=== PATIENT | male | born 1935 | race African-American/Black ===

== ENCOUNTER → 2016-07-24 | Outpatient (CLI) | payer OTHER ==
[2016-02-03 10:45] VITALS: BP 138/76
[~2016-07-24] MED LIST: ATOR40TA59 PO; CONTRAST GIVEN MC PRN; FINA5TAB4 PO; HEPARIN for ARTERIAL LINE 0 ML ONE; IOHEXOL 240 MG/ML 50ML VIAL. PO ONE; IOHEXOL 300 MG/ML 75 ML VIAL IV ONE; LEUP30SY IM; LIDOCAINE 1%/EPI 1:100,000 20 ML VIAL. ONE; TAMS0.4C2 PO; TRAM50TA PO
[2016-07-24 08:18] LABS: CREATININE 1.4 mg/dL (0.7-1.3); GFR 58.7
--- NOTE | 2016-07-24 10:35 | RAD ---
Indication prostate malignancy. Staging. Axial images through the abdomen and pelvis were obtained. Both oral and IV contrast were administered. 60 cc of Omnipaque [address] imaging of the abdomen or pelvis is available. There is pleural calcification posteriorly at the left lung base. This may reflect previous asbestos exposure, hemorrhage or prior infection. There is a pleural-based nodule measuring approximately 8 mm at the right lung base posteriorly, image 11 series 2. This may reflect scar. A parenchymal mass is not excluded. (Scarring, however, is favored as the etiology as there are healed rib fractures noted in the same area) Follow-up imaging should be considered. An acute finding at either lung base is not seen. The liver and spleen appear unremarkable and the gallbladder appears grossly normal. No pancreatic mass is seen. There are bilateral renal cysts. No adrenal masses are seen. Significant central or retroperitoneal adenopathy in the abdomen is not seen. The prostate is enlarged. There is mild diffuse urinary bladder wall thickening compatible with chronic cystitis or chronic outlet obstructive process. An acute finding in the pelvis is not seen. Significant pelvic adenopathy is not apparent. There is no evidence of metastatic disease in the abdomen or pelvis. Degenerative changes are noted in the lumbar spine. IMPRESSION: No acute finding in the abdomen or pelvis. No evidence of metastatic disease. Pleural calcification at the left lung base suggesting possible prior asbestos exposure. Nodular opacity at the right lung base posteriorly likely reflects scar. Parenchymal nodule not completely excluded. Follow-up imaging should be considered. Renal cysts. Enlarged prostate. Diffuse thickening of the urinary bladder suggesting chronic outlet obstructive process or inflammation. PQRS Compliance Statement: One or more of the following individualized dose reduction techniques were utilized for this examination: 1. Automated exposure control 2. Adjustment of the mA and/or kV according to patient size 3. Use of iterative reconstruction technique
--- NOTE | 2016-07-24 13:10 | RAD ---
Whole body bone scan Clinical indications: Prostate cancer. Staging. Comparison: None available. Technique: After IV infusion of 25 mCi of technetium 99m MDP, anterior and posterior planar images of the whole body were performed. Findings: Bilateral renal function is evident. There is degenerative activity seen involving both knee joints. There is degenerative activity seen involving the lower thoracic spine and the lower lumbar spine. There is degenerative activity involving the right sternoclavicular joint. There is degenerative activity involving both hip joints. Otherwise, there is no pattern of uptake to indicate osseous metastatic disease. IMPRESSION: There is no pattern of uptake to indicate osseous metastatic disease.
== END | disposition home or self-care (01) ==
LOC: NM 06:38
PROVIDERS: ATTEND Radiology Radiation Oncology
DX: C61 Malignant neoplasm of prostate (principal)
CPT/HCPCS: 36415; 74177; 78306; 82565; 84520; 96374; A9503; Q9966; Q9967

== ENCOUNTER → 2016-08-03 | Outpatient (CLI) | payer OTHER ==
[~2016-08-03] VITALS: Ht 170.2 cm; Wt 68.9 kg
[~2016-08-03] MED LIST changes: +ASPI325T70 PO; -CONTRAST GIVEN MC PRN; -HEPARIN for ARTERIAL LINE 0 ML ONE; -IOHEXOL 240 MG/ML 50ML VIAL. PO ONE; -IOHEXOL 300 MG/ML 75 ML VIAL IV ONE; -LIDOCAINE 1%/EPI 1:100,000 20 ML VIAL. ONE
[2016-08-03 10:22] VITALS: BP 145/68
[2016-08-03 10:53] VITALS: BP_SYST 136; BP_SYST 153; BP_DIAS 72; BP_DIAS 89
[2016-08-03 10:54] VITALS: BP 155/80
--- NOTE | 2016-08-03 12:29 | RAD ---
Ultrasound-guided prostate fiducial marker placements, 08/03/2016: History: Prostate cancer Under sonographic guidance and utilizing a transrectal approach, 3 Civco prostate fiducial markers were placed. The first marker was placed superiorly in the left lobe of the gland. The second marker was placed inferiorly in the left lobe of the gland. The third marker was placed in the midportion of the right lobe of the gland. The patient tolerated the procedure well and left the department in good condition. He is to follow up with Dr. Faulkner.
== END | disposition home or self-care (01) ==
LOC: US 09:36
PROVIDERS: ATTEND Radiology Radiation Oncology
DX: C61 Malignant neoplasm of prostate (principal)
CPT/HCPCS: 55876; 77387

== ENCOUNTER 2016-08-28 17:21 | Emergency (ER) | payer OTHER ==
[~2016-08-28] VITALS: Ht 170.2 cm; Wt 71.2 kg
--- NOTE | 2016-08-28 17:56 | ED.ADGEN ---
Past Medical History Past Medical History: Other Additional Past Medical Histor: BPH Past Surgical History: No Surgical History Alcohol Use: None Drug Use: None Adult General Chief Complaint Chief Complaint: NEURO SYMPTOMS/DEFICITS HPI HPI Patient is a 81 year old man, with history of prostate cancer for which he is currently receiving radiation, who presents to the emergency department with multiple complaints. Patient states that he was mowing his lawn about 2 hours ago, when he began feeling tired, experienced chest tightness, and weakness in his arms and legs. He states he noted that he was unable to make a straight line with his lawnmower in the grass. He denies any syncope, complains of mild shortness of breath, states that he felt as though "my spit got sick", and he was unable to find words. He did not pass out, states he did not have any focal weakness, is complaining of some decreased sensation in the left side of his body and left-sided his face. Denies any similar symptoms previously. At this time he states he still having some difficulty finding words, but otherwise symptoms are resolved. Denies any recent travel or surgery, any history of DVT or PE. Review of Systems Review of Systems Constitutional: Denies fever or chills. [] Eyes: Denies change in visual acuity. [] HENT: Denies nasal congestion or sore throat. [] Respiratory: Denies cough, shortness of breath associated with chest tightness and lightheadedness. Cardiovascular: Chest tightness located in the center of his chest. No edema. GI: Denies abdominal pain, nausea, vomiting, bloody stools or diarrhea. [] : Denies dysuria. [] Musculoskeletal: Denies back pain or joint pain. [] Integument: Denies rash. [] Neurologic: Denies headache, focal weakness, felt as though he was off balance , with decreased sensation in the left side of his face and arm and leg. Endocrine: Denies polyuria or polydipsia. [] Lymphatic: Denies swollen glands. [] Psychiatric: Denies depression or anxiety. [] Current Medications Current Medications Current Medications Medications (Trade) Dose Ordered Sig/Zoë Start Time Stop Time Status Last Admin Dose Admin Oseltamivir Phosphate (Tamiflu) 75 mg 1X ONCE 08/28/16 21:00 08/28/16 21:01 DC Allergies Allergies Allergies Coded Allergies Type Severity Reaction Last Updated Verified procaine Allergy Intermediate 2/13/17 Yes Physical Exam Physical Exam Constitutional: Well developed, well nourished, no acute distress, non-toxic appearance. [] HENT: Normocephalic, atraumatic, bilateral external ears normal, oropharynx moist, no oral exudates, nose normal. [] Eyes: PERRLA, EOMI, conjunctiva normal, no discharge. [] Neck: Normal range of motion, no tenderness, supple, no stridor. [] Cardiovascular:Heart rate regular rhythm, no murmur [] Lungs & Thorax: Bilateral breath sounds clear to auscultation [] Abdomen: Bowel sounds normal, soft, no tenderness, no masses, no pulsatile masses. [] Skin: Warm, dry, no erythema, no rash. [] Back: No tenderness, no CVA tenderness. [] Extremities: No tenderness, no cyanosis, no clubbing, ROM intact, no edema. [] Neurologic: Alert and oriented X 3, normal motor function, normal sensory function, no focal deficits noted. [] Psychologic: Affect normal, judgement normal, mood normal. [] Current Patient Data Vital Signs Vital Signs Date Time Temp Pulse Resp B/P Pulse Ox O2 Delivery O2 Flow Rate FiO2 08/28/16 20:40 149/86 Room Air 08/28/16 20:14 76 08/28/16 19:44 21 08/28/16 18:44 94 08/28/16 17:27 97.3 97.3 Lab Values Laboratory Tests Test 08/28/16 14:02 08/28/16 18:35 08/28/16 19:17 White Blood Count 4.6x10^3/uL (4.0-11.0) Red Blood Count 4.27x10^6/uL (4.30-5.70) L Hemoglobin 12.8g/dL (13.0-17.5) L Hematocrit 39.3% (39.0-53.0) Mean Corpuscular Volume 92fL (79-100) Mean Corpuscular Hemoglobin 30pg (25-35) Mean Corpuscular Hemoglobin Concent 33g/dL (31-37) Red Cell Distribution Width 13.7% (11.5-14.5) Platelet Count 170x10^3/uL (140-400) Neutrophils (%) (Auto) 86% (31-73) H Lymphocytes (%) (Auto) 9% (24-48) L Monocytes (%) (Auto) 5% (0-9) Eosinophils (%) (Auto) 1% (0-3) Basophils (%) (Auto) 0% (0-3) Neutrophils # (Auto) 3.9x10^3uL (1.8-7.7) Lymphocytes # (Auto) 0.4x10^3/uL (1.0-4.8) L Monocytes # (Auto) 0.2x10^3/uL (0.0-1.1) Eosinophils # (Auto) 0.0x10^3/uL (0.0-0.7) Basophils # (Auto) 0.0x10^3/uL (0.0-0.2) Segmented Neutrophils % 66% (35-66) Band Neutrophils % 17% (0-9) H Lymphocytes % 11% (24-48) L Monocytes % 6% (0-10) Toxic Granulation Slight Platelet Estimate Adequate (ADEQUATE) Prothrombin Time 16.2SEC (11.7-14.0) H Prothrombin Time INR 1.4 (0.8-1.1) H PTT 28SEC (24-38) Sodium Level 143mmol/L (136-145) Potassium Level 4.1mmol/L (3.5-5.1) Chloride Level 104mmol/L (98-107) Carbon Dioxide Level 30mmol/L (21-32) Anion Gap 9 (6-14) Blood Urea Nitrogen 17mg/dL (8-26) Creatinine 1.5mg/dL (0.7-1.3) H Estimated GFR (Cockcroft-Gault) 54.2 BUN/Creatinine Ratio 11 (6-20) Glucose Level 126mg/dL (70-99) H Calcium Level 10.1mg/dL (8.5-10.1) Total Bilirubin 0.5mg/dL (0.2-1.0) Aspartate Amino Transferase (AST) 25U/L (15-37) Alanine Aminotransferase (ALT) 29U/L (16-63) Alkaline Phosphatase 71U/L (46-116) Troponin I Quantitative < 0.017ng/mL (0.000-0.055) UR-Vzn-D-Type Natriuretic Peptide 52pg/mL (0-449) Total Protein 8.1g/dL (6.4-8.2) Albumin 3.9g/dL (3.4-5.0) Albumin/Globulin Ratio 0.9 (1.0-1.7) L Urine Collection Type Unknown Urine Color Dk yellow Urine Clarity Clear Urine pH 7.5 Urine Specific [place] 1.025 Urine Protein Negativemg/dL (NEG-TRACE) Urine Glucose (UA) Negativemg/dL (NEG) Urine Ketones (Stick) Negativemg/dL (NEG) Urine Blood Negative (NEG) Urine Nitrite Negative (NEG) Urine Bilirubin Small (NEG) Urine Urobilinogen Dipstick 0.2mg/dL (0.2 mg/dL) Urine Leukocyte Esterase Negative (NEG) Urine RBC 0/HPF (0-2) Urine WBC 0/HPF (0-4) Urine Squamous Epithelial Cells Occ/LPF Urine Bacteria 0/HPF (0-FEW) Urine Hyaline Casts Moderate/HPF Urine Mucus Mod/LPF Urine Opiates Screen Neg (NEG) Urine Methadone Screen Neg (NEG) Urine Barbiturates Neg (NEG) Urine Phencyclidine Screen Neg (NEG) Urine Amphetamine/Methamphetamine Neg (NEG) Urine Benzodiazepines Screen Neg (NEG) Urine Cocaine Screen Neg (NEG) Urine Cannabinoids Screen Neg (NEG) Urine Ethyl Alcohol Neg (NEG) Influenza Type A Antigen Positive (NEGATIVE) Influenza Type B Antigen Negative (NEGATIVE) Laboratory Tests 08/28/16 14:02 Laboratory Tests 08/28/16 14:02 EKG EKG EC: Sinus rhythm, heart rate 87 beats/minute, upright axis, QTC of 412, TX 152, QRS of 60, patient with contour abnormalities noted in the anterior septal leads, with moderate baseline artifact noted, no ST elevations or depressions identified. Patient with T-wave flattening in leads 3 and aVF. Abnormal ECG, does not meet STEMI criteria. As interpreted by me. [] Radiology/Procedures Radiology/Procedures Chest x-ray: One view: Normal cardiopulmonary silhouette, no traits, no effusions, no pneumothorax, soft tissue or bony abnormalities identified. As interpreted by me. [] Course & Med Decision Making Course & Med Decision Making Pertinent Labs and Imaging studies reviewed. (See chart for details) Patient denies complaints at this time, is resting comfortably. Lab returned studies reveal a doses, patient is noted to have a left shift with bands, although he is afebrile, with no evidence of infiltrate noted on chest x-ray. I did discuss findings with patient, as he is influenza B-positive, and this may be the presentation of his influenza infection, I did recommend the patient be admitted to the hospital for additional evaluation and monitoring. Patient states that he is feeling very well this time, has been tolerating oral fluids in the ED without issue, and wants to go home. Patient received orthostatics in the emergency department, which were unremarkable without triggering patient's recurrence of symptoms, lying flat heart rate of 67 with a blood pressure of 126 /72, seated upright, heart rate of 77, blood pressure 134/76, and standing heart rate of 87 with a blood pressure of 135 or 82. Patient received a little toward trial in the emergency department, which she performed without issue, oxygen saturation in the mid to upper 90s. I did discuss concerning symptoms that would prompt return to the ED, use of Tamiflu, importance of staying well- hydrated, and rest. Again addressed admission to the hospital with patient and family at bedside, patient again declined. Patient was discharged home with prescription for Tamiflu, received first dose in the ED, with medication precautions return instructions as stated, to follow-up with his PCP, and to return to the ED at anytime as needed. Dragon Disclaimer Dragon Disclaimer This electronic medical record was generated, in whole or in part, using a voice recognition dictation system. Departure Impression: Primary Impression: Influenza Disposition: 01 HOME, SELF-CARE Condition: IMPROVED Scripts Oseltamivir Phosphate (Tamiflu)75 Mg Capsule1 Cap PO BID #10 CAP Prov:SHAHNAZ FUNES DO 08/28/16 SHAHNAZ FUNES DO Aug 28, 2016 17:56
[2016-08-28 18:07] LABS: BASO % 0 % (0-3); EOS % 1 % (0-3); HEMATOCRIT 39.3 % (39.0-53.0); HEMOGLOBIN 12.8 g/dL (13.0-17.5); LYMPH # 0.4 x10^3/uL (1.0-4.8); LYMPH % 9 % (24-48); MEAN CORPUSCULAR HEMOGLOBIN 30 pg (25-35); MEAN CORPUSCULAR HGB CONC 33 g/dL (31-37); MEAN CORPUSCULAR VOLUME 92 fL (79-100); MONO % 5 % (0-9); NEUT % 86 % (31-73); PLATELET COUNT 170 x10^3/uL (140-400); RED BLOOD COUNT 4.27 x10^6/uL (4.30-5.70); RED CELL DISTRIBUTION WIDTH 13.7 % (11.5-14.5); WHITE BLOOD COUNT 4.6 x10^3/uL (4.0-11.0)
[2016-08-28 18:16] LABS: INR 1.4 (0.8-1.1); PROTHROMBIN TIME PATIENT 16.2 SEC (11.7-14.0)
[2016-08-28 18:27] LABS: CALCIUM 10.1 mg/dL (8.5-10.1); CREATININE 1.5 mg/dL (0.7-1.3); GFR 54.2; POTASSIUM 4.1 mmol/L (3.5-5.1)
[2016-08-28 18:33] LABS: ALBUMIN 3.9 g/dL (3.4-5.0); ALBUMIN/GLOBULIN RATIO 0.9 (1.0-1.7); TOTAL BILIRUBIN 0.5 mg/dL (0.2-1.0); TOTAL PROTEIN 8.1 g/dL (6.4-8.2)
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
[2016-08-28 18:41] LABS: PLT ESTIMATE ADEQUATE (ADEQUATE); TOXIC GRANULATION SLIGHT
[2016-08-28 18:51] LABS: BILIRUBIN,URINE SMALL (NEG); GLUCOSE,URINE NEGATIVE (NEG); NITRITE,URINE NEGATIVE (NEG); PH,URINE 7.5; PROTEIN,URINE NEGATIVE (NEG-TRACE); UROBILINOGEN,URINE 0.2 mg/dL (0.2 mg/dL)
[2016-08-28 18:56] LABS: BARBITURATES NEG (NEG); BENZODIAZEPINES NEG (NEG); CANNABINOIDS NEG (NEG); COCAINE NEG (NEG); METHADONE NEG (NEG); OPIATES NEG (NEG); PHENCYCLIDINE NEG (NEG)
[2016-08-28 18:59] LABS: ETHANOL, URINE NEG (NEG)
[2016-08-28 19:13] LABS: BACTERIA,URINE 0 /HPF (0-FEW); RBC,URINE 0 /HPF (0-2); SQUAMOUS EPITHELIAL CELL,UR OCC /LPF; WBC,URINE 0 /HPF (0-4)
[2016-08-28 19:49] LABS: OBC FLU VALID
[2016-08-28] MEDS ORDERED: OSEL75CA PO (20:48)
[2016-08-28] MEDS ORDERED: OSELTAMIVIR 75 MG CAPSULE PO ONE (21:00)
[2016-08-28 21:14] VITALS: BP 155/85
--- NOTE | 2016-08-29 08:52 | RAD ---
Indication: Chest tightness today. Right-sided chest pain. Technique: Upright portable chest radiograph was obtained. Comparison is from October 13, 2011. Findings: The lungs are clear. There is no pneumothorax or pleural fluid. Eventration of the right hemidiaphragm is noted. The heart is not enlarged. There is atheromatous disease in the thoracic aorta. There are old right rib deformities. Leads overlie the patient. Impression: No acute thoracic findings.
--- NOTE | 2016-08-29 09:09 | EKG ---
[facility] [address] [place] [address] Test Date: 2016-08-28 Test Time: 17:41:35 Pat Name: DANIELLA THOMAS Department: Room: Gender: M Web Site Developer: : 1935 Requested By: SHAHNAZ FUNES Order Number: [id number] Reading MD: Fany Falcon Measurements Intervals [place] Rate: 87 P: 29 MD: 152 QRS: 40 QRSD: 60 T: 26 QT: 342 QTc: 412 Interpretive Statements SINUS RHYTHM QRS(T) CONTOUR ABNORMALITY CONSISTENT WITH ANTEROSEPTAL INFARCT PROBABLY OLD ABNORMAL ECG RI6.01 Compared to ECG 02/03/2016 07:54:19 Myocardial infarct finding now present Electronically Signed On 08-29-2016 20:24:56 CDT by Fany Falcon
== END 2016-08-28 21:41 | disposition home or self-care (01) ==
LOC: ER 17:21
DX: J11.1 Influenza due to unidentified influenza virus with other respiratory manifestations (principal); N40.0 Benign prostatic hyperplasia without lower urinary tract symptoms; Z88.4 Allergy status to anesthetic agent; Z85.46 Personal history of malignant neoplasm of prostate; Z92.3 Personal history of irradiation
CPT/HCPCS: 36415; 70450; 71010; 80053; 81001; 83880; 84484; 85007; 85027; 85610; 85730; 87804; 93005; 99285; G0481

== ENCOUNTER 2016-08-29 13:32 | Emergency (ER) | payer OTHER ==
[~2016-08-29] VITALS: Ht 170.2 cm; Wt 71.2 kg
[~2016-08-29 13:32] MED LIST changes: +OSEL75CA PO
[2016-08-29] MEDS ORDERED: OSELTAMIVIR 75 MG CAPSULE PO STA (15:09)
[2016-08-29 15:17] LABS: BASO % 1 % (0-3); EOS % 3 % (0-3); HEMATOCRIT 37.5 % (39.0-53.0); HEMOGLOBIN 12.5 g/dL (13.0-17.5); LYMPH # 0.6 x10^3/uL (1.0-4.8); LYMPH % 20 % (24-48); MEAN CORPUSCULAR HEMOGLOBIN 31 pg (25-35); MEAN CORPUSCULAR HGB CONC 33 g/dL (31-37); MEAN CORPUSCULAR VOLUME 93 fL (79-100); MONO % 13 % (0-9); NEUT % 64 % (31-73); PLATELET COUNT 177 x10^3/uL (140-400); RED BLOOD COUNT 4.05 x10^6/uL (4.30-5.70); RED CELL DISTRIBUTION WIDTH 13.3 % (11.5-14.5); WHITE BLOOD COUNT 2.9 x10^3/uL (4.0-11.0)
[2016-08-29 15:27] LABS: CALCIUM 9.7 mg/dL (8.5-10.1); CREATININE 1.2 mg/dL (0.7-1.3); GFR 70.1; MAGNESIUM 2.2 mg/dL (1.8-2.4); POTASSIUM 4.4 mmol/L (3.5-5.1)
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
[2016-08-29 17:30] VITALS: BP 159/70
== END 2016-08-29 19:04 | disposition home or self-care (01) ==
LOC: ER 13:32
DX: J11.1 Influenza due to unidentified influenza virus with other respiratory manifestations (principal); M19.90 Unspecified osteoarthritis, unspecified site; C61 Malignant neoplasm of prostate; Z88.8 Allergy status to other drugs, medicaments and biological substances
CPT/HCPCS: 36415; 80048; 83735; 85027; 99284

== ENCOUNTER 2016-09-08 18:08 | Inpatient (IN) | payer OTHER ==
[~2016-09-08] VITALS: Ht 170.2 cm; Wt 78.0 kg
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
[2016-09-08 19:30] LABS: BILIRUBIN,URINE NEGATIVE (NEG); GLUCOSE,URINE NEGATIVE (NEG); NITRITE,URINE NEGATIVE (NEG); PH,URINE 8.5; PROTEIN,URINE NEGATIVE (NEG-TRACE); UROBILINOGEN,URINE 0.2 mg/dL (0.2 mg/dL)
[2016-09-08 19:51] LABS: BACTERIA,URINE 0 /HPF (0-FEW); RBC,URINE TNTC /HPF (0-2); WBC,URINE 0 /HPF (0-4)
[2016-09-08 19:52] LABS: BASO % 1 % (0-3); EOS % 4 % (0-3); HEMATOCRIT 36.6 % (39.0-53.0); HEMOGLOBIN 12.1 g/dL (13.0-17.5); LYMPH # 0.4 x10^3/uL (1.0-4.8); LYMPH % 15 % (24-48); MEAN CORPUSCULAR HEMOGLOBIN 30 pg (25-35); MEAN CORPUSCULAR HGB CONC 33 g/dL (31-37); MEAN CORPUSCULAR VOLUME 92 fL (79-100); MONO % 15 % (0-9); NEUT % 66 % (31-73); PLATELET COUNT 165 x10^3/uL (140-400); RED BLOOD COUNT 3.98 x10^6/uL (4.30-5.70); RED CELL DISTRIBUTION WIDTH 14.1 % (11.5-14.5); WHITE BLOOD COUNT 2.9 x10^3/uL (4.0-11.0)
[2016-09-08 19:59] LABS: CALCIUM 9.7 mg/dL (8.5-10.1); CREATININE 1.1 mg/dL (0.7-1.3); GFR 77.5
[2016-09-08 20:01] LABS: INR 1.4 (0.8-1.1); PROTHROMBIN TIME PATIENT 16.5 SEC (11.7-14.0)
[2016-09-08] MEDS ORDERED: ONDANSETRON PF 4 MG/2 ML VIAL. IV PRN (21:15)
[2016-09-08] MEDS ORDERED: FENTANYL PF 100 MCG/2 ML VIAL. IV ONE (21:15)
[2016-09-09] VITALS (7 sets, daily range): BP systolic 113–141; BP diastolic 63–83
[2016-09-09] MEDS: IV NORMAL SALINE 1000ML BAG 1,000 ML IV SCH ×3 (00:31→17:15)
[2016-09-09] MEDS: FENTANYL PF 100 MCG/2 ML VIAL. IV PRN ×4 (00:31→18:42)
[2016-09-09] MEDS ORDERED: DICLOFENAC SODIUM 1% TOPICAL GEL 100GM TUBE. TP PRN (04:15)
[2016-09-09 04:51] LABS: BASO % 1 % (0-3); EOS % 6 % (0-3); HEMATOCRIT 33.9 % (39.0-53.0); HEMOGLOBIN 11.2 g/dL (13.0-17.5); LYMPH # 0.4 x10^3/uL (1.0-4.8); LYMPH % 16 % (24-48); MEAN CORPUSCULAR HEMOGLOBIN 31 pg (25-35); MEAN CORPUSCULAR HGB CONC 33 g/dL (31-37); MEAN CORPUSCULAR VOLUME 93 fL (79-100); MONO % 17 % (0-9); NEUT % 61 % (31-73); PLATELET COUNT 146 x10^3/uL (140-400); RED BLOOD COUNT 3.64 x10^6/uL (4.30-5.70); RED CELL DISTRIBUTION WIDTH 13.5 % (11.5-14.5); WHITE BLOOD COUNT 2.9 x10^3/uL (4.0-11.0)
[2016-09-09 04:54] LABS: CALCIUM 9.3 mg/dL (8.5-10.1); CREATININE 1.1 mg/dL (0.7-1.3); GFR 77.5; POTASSIUM 3.9 mmol/L (3.5-5.1)
--- NOTE | 2016-09-09 09:39 | PDOC ---
SUBJECTIVE Subjective Pt. with prostate cancer-undergoing radiation treatments OBJECTIVE Objective Pt. with blood per meatus and probable urinary retention Vital Signs Vital Signs Date Time Temp Pulse Resp B/P Pulse Ox O2 Delivery O2 Flow Rate FiO2 09/09/16 07:45 98.1 75 20 126/78 98 Room Air 98.1 09/09/16 03:32 18 99 Room Air 09/09/16 03:17 18 99 09/09/16 03:00 97.7 78 20 134/76 98 Room Air 97.7 09/09/16 01:26 Room Air 09/09/16 00:31 18 Room Air 09/09/16 00:30 98.1 80 16 113/63 99 Room Air 98.1 09/08/16 23:09 80 18 130/67 97 Room Air 09/08/16 22:09 90 16 130/66 96 Room Air 09/08/16 21:09 84 18 140/84 96 Room Air 09/08/16 20:09 92 18 137/83 99 Room Air 09/08/16 19:43 88 16 145/69 98 Room Air 09/08/16 19:21 90 16 151/95 98 Room Air 09/08/16 19:09 93 16 172/94 99 Room Air 09/08/16 18:21 97.9 106 16 141/91 96 Room Air 97.9 I & O Intake and Output 09/09/16 07:00 Intake Total 0 ml Balance 0 ml Intake Oral 0 ml PHYSICAL EXAM Physical Exam machado in place-urine clear ASSESSMENT/PLAN Assessment/Plan keep machado flomax consult Dr. Faulkner and Dr. Hugo F/U in urology office with [employer] Nereyda Sales in 3-4 weeks for voiding trial Problems: COMMENT Lab Laboratory Tests Test 09/08/16 19:20 09/08/16 19:40 09/09/16 03:18 Urine Collection Type Unknown Urine Color Yellow Urine Clarity Clear Urine pH 8.5 Urine Specific Shiro 1.010 Urine Protein Negativemg/dL (NEG-TRACE) Urine Glucose (UA) Negativemg/dL (NEG) Urine Ketones (Stick) Negativemg/dL (NEG) Urine Blood Large (NEG) Urine Nitrite Negative (NEG) Urine Bilirubin Negative (NEG) Urine Urobilinogen Dipstick 0.2mg/dL (0.2 mg/dL) Urine Leukocyte Esterase Negative (NEG) Urine RBC Tntc/HPF (0-2) Urine WBC 0/HPF (0-4) Urine Bacteria 0/HPF (0-FEW) White Blood Count 2.9x10^3/uL (4.0-11.0) 2.9x10^3/uL (4.0-11.0) Red Blood Count 3.98x10^6/uL (4.30-5.70) 3.64x10^6/uL (4.30-5.70) Hemoglobin 12.1g/dL (13.0-17.5) 11.2g/dL (13.0-17.5) Hematocrit 36.6% (39.0-53.0) 33.9% (39.0-53.0) Mean Corpuscular Volume 92fL (79-100) 93fL (79-100) Mean Corpuscular Hemoglobin 30pg (25-35) 31pg (25-35) Mean Corpuscular Hemoglobin Concent 33g/dL (31-37) 33g/dL (31-37) Red Cell Distribution Width 14.1% (11.5-14.5) 13.5% (11.5-14.5) Platelet Count 165x10^3/uL (140-400) 146x10^3/uL (140-400) Neutrophils (%) (Auto) 66% (31-73) 61% (31-73) Lymphocytes (%) (Auto) 15% (24-48) 16% (24-48) Monocytes (%) (Auto) 15% (0-9) 17% (0-9) Eosinophils (%) (Auto) 4% (0-3) 6% (0-3) Basophils (%) (Auto) 1% (0-3) 1% (0-3) Neutrophils # (Auto) 1.9x10^3uL (1.8-7.7) 1.7x10^3uL (1.8-7.7) Lymphocytes # (Auto) 0.4x10^3/uL (1.0-4.8) 0.4x10^3/uL (1.0-4.8) Monocytes # (Auto) 0.4x10^3/uL (0.0-1.1) 0.5x10^3/uL (0.0-1.1) Eosinophils # (Auto) 0.1x10^3/uL (0.0-0.7) 0.2x10^3/uL (0.0-0.7) Basophils # (Auto) 0.0x10^3/uL (0.0-0.2) 0.0x10^3/uL (0.0-0.2) Prothrombin Time 16.5SEC (11.7-14.0) Prothromb Time International Ratio 1.4 (0.8-1.1) Sodium Level 144mmol/L (136-145) 142mmol/L (136-145) Potassium Level 4.0mmol/L (3.5-5.1) 3.9mmol/L (3.5-5.1) Chloride Level 106mmol/L (98-107) 106mmol/L (98-107) Carbon Dioxide Level 30mmol/L (21-32) 27mmol/L (21-32) Anion Gap 8 (6-14) 9 (6-14) Blood Urea Nitrogen 20mg/dL (8-26) 19mg/dL (8-26) Creatinine 1.1mg/dL (0.7-1.3) 1.1mg/dL (0.7-1.3) Estimated GFR (Cockcroft-Gault) 77.5 77.5 Glucose Level 96mg/dL (70-99) 81mg/dL (70-99) Calcium Level 9.7mg/dL (8.5-10.1) 9.3mg/dL (8.5-10.1) SANDRA GUTIERREZ MD Sep 09, 2016 09:39
[2016-09-09] MEDS: TAMSULOSIN 0.4 MG CAP.ER.24H. PO SCH (10:30)
--- NOTE | 2016-09-09 10:32 | PDOC ---
Provider Note Provider Note Pt seen.H&P dictated. #[id number] CAMERON ABREU MD Sep 09, 2016 10:32
[2016-09-09] MEDS ORDERED: POLYETHYLENE GLYCOL 3350 17 GM PACKET. PO PRN (12:15)
[2016-09-09] MEDS ORDERED: SENNOSIDES/DOCUSATE 8.6/50MG TABLET. PO PRN (12:15)
--- NOTE | 2016-09-09 12:17 | PDOC ---
Provider Note Provider Note Heme consult dictated- [id number] Mild neutropenia, Clinically insignificant. Likely reactive to current RT. Expect to recover after RT completed. Prostate cancer on RT and ADT via urology MELANIA LIPSCOMB DO Sep 09, 2016 12:17
--- NOTE | 2016-09-09 15:49 | PDOC ---
SUBJECTIVE Subjective Pt. with some voiding around machado today OBJECTIVE Objective urine clear Vital Signs Vital Signs Date Time Temp Pulse Resp B/P Pulse Ox O2 Delivery O2 Flow Rate FiO2 09/09/16 14:50 98.9 80 20 137/72 96 Room Air 98.9 09/09/16 11:01 97 Room Air 09/09/16 10:31 Room Air 09/09/16 10:22 97.8 83 20 122/78 97 Room Air 97.8 09/09/16 08:10 Room Air 09/09/16 07:45 98.1 75 20 126/78 98 Room Air 98.1 09/09/16 03:32 18 09/09/16 03:17 18 99 09/09/16 03:00 97.7 78 20 134/76 98 Room Air 97.7 09/09/16 01:26 Room Air 09/09/16 00:31 18 Room Air 09/09/16 00:30 98.1 80 16 113/63 99 Room Air 98.1 09/08/16 23:09 80 18 130/67 97 Room Air 09/08/16 22:09 90 16 130/66 96 Room Air 09/08/16 21:09 84 18 140/84 96 Room Air 09/08/16 20:09 92 18 137/83 99 Room Air 09/08/16 19:43 88 16 145/69 98 Room Air 09/08/16 19:21 90 16 151/95 98 Room Air 09/08/16 19:09 93 16 172/94 99 Room Air 09/08/16 18:21 97.9 106 16 141/91 96 Room Air 97.9 I & O Intake and Output 09/09/16 07:00 Intake Total 0 ml Balance 0 ml Intake Oral 0 ml PHYSICAL EXAM Physical Exam machado in place CT pelvis-machado in good position ASSESSMENT/PLAN Assessment/Plan keep pt. overnight keep machado D/C home tomorrow after XRT if OK with primary service Problems: COMMENT Lab Laboratory Tests Test 09/08/16 19:20 09/08/16 19:40 09/09/16 03:18 Urine Collection Type Unknown Urine Color Yellow Urine Clarity Clear Urine pH 8.5 Urine Specific Beecher 1.010 Urine Protein Negativemg/dL (NEG-TRACE) Urine Glucose (UA) Negativemg/dL (NEG) Urine Ketones (Stick) Negativemg/dL (NEG) Urine Blood Large (NEG) Urine Nitrite Negative (NEG) Urine Bilirubin Negative (NEG) Urine Urobilinogen Dipstick 0.2mg/dL (0.2 mg/dL) Urine Leukocyte Esterase Negative (NEG) Urine RBC Tntc/HPF (0-2) Urine WBC 0/HPF (0-4) Urine Bacteria 0/HPF (0-FEW) White Blood Count 2.9x10^3/uL (4.0-11.0) 2.9x10^3/uL (4.0-11.0) Red Blood Count 3.98x10^6/uL (4.30-5.70) 3.64x10^6/uL (4.30-5.70) Hemoglobin 12.1g/dL (13.0-17.5) 11.2g/dL (13.0-17.5) Hematocrit 36.6% (39.0-53.0) 33.9% (39.0-53.0) Mean Corpuscular Volume 92fL (79-100) 93fL (79-100) Mean Corpuscular Hemoglobin 30pg (25-35) 31pg (25-35) Mean Corpuscular Hemoglobin Concent 33g/dL (31-37) 33g/dL (31-37) Red Cell Distribution Width 14.1% (11.5-14.5) 13.5% (11.5-14.5) Platelet Count 165x10^3/uL (140-400) 146x10^3/uL (140-400) Neutrophils (%) (Auto) 66% (31-73) 61% (31-73) Lymphocytes (%) (Auto) 15% (24-48) 16% (24-48) Monocytes (%) (Auto) 15% (0-9) 17% (0-9) Eosinophils (%) (Auto) 4% (0-3) 6% (0-3) Basophils (%) (Auto) 1% (0-3) 1% (0-3) Neutrophils # (Auto) 1.9x10^3uL (1.8-7.7) 1.7x10^3uL (1.8-7.7) Lymphocytes # (Auto) 0.4x10^3/uL (1.0-4.8) 0.4x10^3/uL (1.0-4.8) Monocytes # (Auto) 0.4x10^3/uL (0.0-1.1) 0.5x10^3/uL (0.0-1.1) Eosinophils # (Auto) 0.1x10^3/uL (0.0-0.7) 0.2x10^3/uL (0.0-0.7) Basophils # (Auto) 0.0x10^3/uL (0.0-0.2) 0.0x10^3/uL (0.0-0.2) Prothrombin Time 16.5SEC (11.7-14.0) Prothromb Time International Ratio 1.4 (0.8-1.1) Sodium Level 144mmol/L (136-145) 142mmol/L (136-145) Potassium Level 4.0mmol/L (3.5-5.1) 3.9mmol/L (3.5-5.1) Chloride Level 106mmol/L (98-107) 106mmol/L (98-107) Carbon Dioxide Level 30mmol/L (21-32) 27mmol/L (21-32) Anion Gap 8 (6-14) 9 (6-14) Blood Urea Nitrogen 20mg/dL (8-26) 19mg/dL (8-26) Creatinine 1.1mg/dL (0.7-1.3) 1.1mg/dL (0.7-1.3) Estimated GFR (Cockcroft-Gault) 77.5 77.5 Glucose Level 96mg/dL (70-99) 81mg/dL (70-99) Calcium Level 9.7mg/dL (8.5-10.1) 9.3mg/dL (8.5-10.1) SNADRA GUTIERREZ MD Sep 09, 2016 15:49
--- NOTE | 2016-09-09 15:52 | RAD ---
Indication assess fully catheter placement. Leaking around the Abdul catheter. Noncontrast imaging through the pelvis was performed. No IV or gastrointestinal contrast was administered. No significant soft tissue finding is seen. A Abdul catheter is noted appropriately positioned in the urinary bladder. No complication is seen. A small amount of air is noted in the urinary bladder compatible with recent catheter placement. Enlarged prostate is noted. Substantial degenerative changes in the lower lumbar spine are additionally noted. IMPRESSION: No acute finding. Appropriately positioned Abdul catheter PQRS Compliance Statement: One or more of the following individualized dose reduction techniques were utilized for this examination: 1. Automated exposure control 2. Adjustment of the mA and/or kV according to patient size 3. Use of iterative reconstruction technique
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
[2016-09-10 03:00] VITALS: BP 137/83
[2016-09-10 07:00] VITALS: BP 133/81
[2016-09-10 08:47] LABS: BASO % 1 % (0-3); EOS % 5 % (0-3); HEMATOCRIT 36.1 % (39.0-53.0); HEMOGLOBIN 12.1 g/dL (13.0-17.5); LYMPH # 0.3 x10^3/uL (1.0-4.8); LYMPH % 12 % (24-48); MEAN CORPUSCULAR HEMOGLOBIN 31 pg (25-35); MEAN CORPUSCULAR HGB CONC 33 g/dL (31-37); MEAN CORPUSCULAR VOLUME 92 fL (79-100); MONO % 14 % (0-9); NEUT % 69 % (31-73); PLATELET COUNT 145 x10^3/uL (140-400); RED BLOOD COUNT 3.94 x10^6/uL (4.30-5.70); RED CELL DISTRIBUTION WIDTH 13.8 % (11.5-14.5); WHITE BLOOD COUNT 2.7 x10^3/uL (4.0-11.0)
[2016-09-10 08:57] LABS: CALCIUM 9.2 mg/dL (8.5-10.1); GFR 86.6; POTASSIUM 4.1 mmol/L (3.5-5.1)
--- NOTE | 2016-09-10 09:24 | PDOC ---
SUBJECTIVE Subjective Pt. feeling ok OBJECTIVE Objective machado in place Vital Signs Vital Signs Date Time Temp Pulse Resp B/P Pulse Ox O2 Delivery O2 Flow Rate FiO2 09/10/16 07:00 98.1 88 16 133/81 98 98.1 09/10/16 03:00 97.5 79 20 137/83 99 Room Air 97.5 09/09/16 22:54 98.4 76 20 133/81 98 Room Air 98.4 09/09/16 20:47 18 98 Room Air 09/09/16 20:00 Room Air 09/09/16 19:00 98.3 78 20 141/83 98 Room Air 98.3 09/09/16 18:42 96 Room Air 09/09/16 14:50 98.9 80 20 137/72 96 Room Air 98.9 09/09/16 10:31 Room Air 09/09/16 10:22 97.8 83 20 122/78 97 Room Air 97.8 I & O Intake and Output 09/10/16 07:00 Intake Total 2180 ml Output Total 4850 ml Balance -2670 ml Intake Oral 1280 ml IV Total 900 ml Output Urine Total 4850 ml PHYSICAL EXAM Physical Exam urine clear good uo machado in good position by CT ASSESSMENT/PLAN Assessment/Plan home when ok with primary service flomax voiding trial in 3-4 weeks Problems: COMMENT Lab Laboratory Tests Test 09/10/16 08:25 White Blood Count 2.7x10^3/uL (4.0-11.0) Red Blood Count 3.94x10^6/uL (4.30-5.70) Hemoglobin 12.1g/dL (13.0-17.5) Hematocrit 36.1% (39.0-53.0) Mean Corpuscular Volume 92fL (79-100) Mean Corpuscular Hemoglobin 31pg (25-35) Mean Corpuscular Hemoglobin Concent 33g/dL (31-37) Red Cell Distribution Width 13.8% (11.5-14.5) Platelet Count 145x10^3/uL (140-400) Neutrophils (%) (Auto) 69% (31-73) Lymphocytes (%) (Auto) 12% (24-48) Monocytes (%) (Auto) 14% (0-9) Eosinophils (%) (Auto) 5% (0-3) Basophils (%) (Auto) 1% (0-3) Neutrophils # (Auto) 1.9x10^3uL (1.8-7.7) Lymphocytes # (Auto) 0.3x10^3/uL (1.0-4.8) Monocytes # (Auto) 0.4x10^3/uL (0.0-1.1) Eosinophils # (Auto) 0.1x10^3/uL (0.0-0.7) Basophils # (Auto) 0.0x10^3/uL (0.0-0.2) Sodium Level 146mmol/L (136-145) Potassium Level 4.1mmol/L (3.5-5.1) Chloride Level 111mmol/L (98-107) Carbon Dioxide Level 25mmol/L (21-32) Anion Gap 10 (6-14) Blood Urea Nitrogen 17mg/dL (8-26) Creatinine 1.0mg/dL (0.7-1.3) Estimated GFR (Cockcroft-Gault) 86.6 Glucose Level 88mg/dL (70-99) Calcium Level 9.2mg/dL (8.5-10.1) SANDRA GUTIERREZ MD Sep 10, 2016 09:24
[2016-09-10] MEDS: TAMSULOSIN 0.4 MG CAP.ER.24H. PO SCH (09:45)
--- NOTE | 2016-09-10 09:50 | PDOC ---
Provider Note Provider Note Day 22 of definitive radiation and ADT for primary adenocarcinoma of prostate. Admitted with gross hematuria. Machado placed and now clear. CT pelvis clear of obvious bladder pathology Machado well tolerated. He does complain of constipation and knee and ankle pain now and not ambulating since admit. PE Abdomen benign. Penis normal with machado in no blood at meatus. Machado clear output. palp tenderness bilaterally at knees and ankles. No edema. Lab Hb 12.1 WBC 2700 plat 145k Chem ok. Impression: Prostate cancer previously doing well with radiation. gross hematuria now clear after machado in. Will resume rt, fu with Dr Dixon to assess machado need and hematuria planned. Dr Dumont to address osteoarthritic join pain and constipation. Discussed with patient and Dr Dumont. BG Garcia MD Sep 10, 2016 09:50
--- NOTE | 2016-09-10 10:32 | PDOC ---
PROGRESS NOTES Subjective Subjective no more bleeding ,machado clear urine Objective Objective Vital Signs Date Time Temp Pulse Resp B/P Pulse Ox O2 Delivery O2 Flow Rate FiO2 09/10/16 07:00 98.1 88 16 133/81 98 98.1 09/10/16 03:00 Room Air Intake and Output 09/10/16 07:00 Intake Total 2180 ml Output Total 4850 ml Balance -2670 ml Intake Oral 1280 ml IV Total 900 ml Output Urine Total 4850 ml Physical Exam Abdomen: Normal bowel sounds, Soft Heart: Regular rate, Normal S1 Extremities: No clubbing General: Alert HEENT: Atraumatic Lungs: Clear to auscultation MUSCULOSKELETAL: No deformity Neck: Supple Neuro: Normal speech Psych/Mental Status: Mental status NL Skin: No breakdown Diagnosis Problem List Problems Medical Problems: (1) Hematuria Status: Acute Assessment Assessment Problems Medical Problems: (1) Hematuria Status: Acute FINAL IMPRESSION: 1. Hematuria. 2. Enlarged prostate. 3. Prostate cancer, getting radiation treatment. PLAN: spoke with urology spoke with radiation oncology. d/c home with home health with machado cathter in place. flomax for bph spoke with family and lining caser. At this time, the patient was seen by Urology, was consulted Radiation Oncology to continue radiation treatment. His white count was slightly low. We will have Hematology consult and see how the patient's condition improves. Discuss with Urology, probably needs to go home with Machado catheter for next couple of weeks and see how he improves. Problems: Plan Plan of Care Problems Medical Problems: (1) Hematuria Status: Acute Comment Review of Relevant I have reviewed the following items jorge l (where applicable) has been applied. Labs Laboratory Tests Test 09/10/16 08:25 White Blood Count 2.7x10^3/uL (4.0-11.0) Red Blood Count 3.94x10^6/uL (4.30-5.70) Hemoglobin 12.1g/dL (13.0-17.5) Hematocrit 36.1% (39.0-53.0) Mean Corpuscular Volume 92fL (79-100) Mean Corpuscular Hemoglobin 31pg (25-35) Mean Corpuscular Hemoglobin Concent 33g/dL (31-37) Red Cell Distribution Width 13.8% (11.5-14.5) Platelet Count 145x10^3/uL (140-400) Neutrophils (%) (Auto) 69% (31-73) Lymphocytes (%) (Auto) 12% (24-48) Monocytes (%) (Auto) 14% (0-9) Eosinophils (%) (Auto) 5% (0-3) Basophils (%) (Auto) 1% (0-3) Neutrophils # (Auto) 1.9x10^3uL (1.8-7.7) Lymphocytes # (Auto) 0.3x10^3/uL (1.0-4.8) Monocytes # (Auto) 0.4x10^3/uL (0.0-1.1) Eosinophils # (Auto) 0.1x10^3/uL (0.0-0.7) Basophils # (Auto) 0.0x10^3/uL (0.0-0.2) Sodium Level 146mmol/L (136-145) Potassium Level 4.1mmol/L (3.5-5.1) Chloride Level 111mmol/L (98-107) Carbon Dioxide Level 25mmol/L (21-32) Anion Gap 10 (6-14) Blood Urea Nitrogen 17mg/dL (8-26) Creatinine 1.0mg/dL (0.7-1.3) Estimated GFR (Cockcroft-Gault) 86.6 Glucose Level 88mg/dL (70-99) Calcium Level 9.2mg/dL (8.5-10.1) Medications Current Medications Polyethylene Glycol (miraLAX PACKET) 17 gm PRN DAILY PRN PO CONSTIPATION; Start 09/09/16 at 12:15 Senna/Docusate Sodium (Senna Plus) 1 tab PRN BID PRN PO CONSTIPATION; Start at 12:15 Vitals/I & O Vital Sign - Last 24 Hours 09/09/16 09/09/16 09/09/16 09/09/16 14:50 18:42 19:00 20:00 Temp 98.9 98.3 98.9 98.3 Pulse 80 78 Resp 20 20 B/P 137/72 141/83 Pulse Ox 96 96 98 O2 Delivery Room Air Room Air Room Air Room Air 09/09/16 09/09/16 09/10/16 09/10/16 20:47 22:54 03:00 07:00 Temp 98.4 97.5 98.1 98.4 97.5 98.1 Pulse 76 79 88 Resp 18 20 20 16 B/P 133/81 137/83 133/81 Pulse Ox 98 98 99 98 O2 Delivery Room Air Room Air Room Air Intake and Output 09/09/16 09/09/16 09/10/16 15:00 23:00 07:00 Intake Total 980 ml 1200 ml 0 ml Output Total 1750 ml 750 ml 2350 ml Balance -770 ml 450 ml -2350 ml CAMERON ABREU MD Sep 10, 2016 10:32
[2016-09-10] MEDS ORDERED: TAMS0.4C97 PO (13:29)
[2016-09-10] MEDS ORDERED: DOCU100C5 PO (13:29)
== END 2016-09-10 14:35 | disposition home health service (06) | DRG 696 ==
LOC: ER 18:08 → 5 NORTH 20:46
PROVIDERS: ADMIT Internal Medicine; ATTEND Internal Medicine
PROC: 0T9B70Z Drainage of Bladder with Drainage Device, Via Natural or Artificial Opening (ICD-10-PCS; principal; 2016-09-08)
DX: R31.0 Gross hematuria (principal); C61 Malignant neoplasm of prostate; K59.00 Constipation, unspecified; M19.90 Unspecified osteoarthritis, unspecified site; N40.0 Benign prostatic hyperplasia without lower urinary tract symptoms; Z82.49 Family history of ischemic heart disease and other diseases of the circulatory system; Z88.8 Allergy status to other drugs, medicaments and biological substances; Z79.899 Other long term (current) drug therapy
CPT/HCPCS: 36415; 51702; 72192; 77385; 80048; 81001; 85027; 85610; 96374; 96375; J2405; J3010; J7030; 99285-25

== ENCOUNTER → 2016-09-23 | Outpatient (CLI) | payer OTHER ==
[2016-09-09 03:00] VITALS: BP 134/76
[~2016-09-23] MED LIST changes: +DOCU100C5 PO; +TAMS0.4C97 PO
== END | disposition home or self-care (01) ==
LOC: LAB 14:38
PROVIDERS: ATTEND Urology
DX: Z12.5 Encounter for screening for malignant neoplasm of prostate (principal)
CPT/HCPCS: 36415; G0103

== ENCOUNTER 2016-12-25 15:41 | Emergency (ER) | payer OTHER ==
[2016-09-09 03:00] VITALS: BP 134/76
[~2016-12-25 15:41] MED LIST changes: +DOCU100C28 PO; -DOCU100C5 PO
== END 2016-12-25 15:44 | disposition left against medical advice (07) ==
LOC: ER 15:41
DX: R68.2 Dry mouth, unspecified (principal); Z53.21 Procedure and treatment not carried out due to patient leaving prior to being seen by health care provider

== ENCOUNTER 2017-12-04 14:32 | Emergency (ER) | payer OTHER ==
[2017-12-04 15:45] LABS: BILIRUBIN,URINE NEGATIVE (NEG); CLARITY,URINE TURBID; COLOR,URINE AMBER; GLUCOSE,URINE NEGATIVE (NEG); NITRITE,URINE NEGATIVE (NEG); PH,URINE 6.5; PROTEIN,URINE >=300 mg/dL (NEG-TRACE); UROBILINOGEN,URINE 0.2 mg/dL (0.2 mg/dL)
[2017-12-04 15:53] LABS: BACTERIA,URINE FEW /HPF (0-FEW); RBC,URINE >40 /HPF (0-2); WBC,URINE TNTC /HPF (0-4)
== END 2017-12-04 16:45 | disposition home or self-care (01) ==
LOC: ER 16:45
DX: N39.0 Urinary tract infection, site not specified (principal); Z88.4 Allergy status to anesthetic agent
CPT/HCPCS: 81001; 87086; 99284

== ENCOUNTER 2018-05-02 13:04 | Emergency (ER) | payer OTHER ==
[~2018-05-02] VITALS: Ht 170.2 cm; Wt 71.2 kg
[~2018-05-02 13:04] MED LIST changes: +ATOR10TA60 PO; +LEVO500T59 PO; +TRAZ-86 PO
[2018-05-02] MEDS ORDERED: ACETAMINOPHEN 500 MG TABLET PO ONE (13:45)
[2018-05-02 13:49] VITALS: BP 197/90
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
== END 2018-05-02 14:21 | disposition home or self-care (01) ==
LOC: ER 13:04
DX: M79.10 Myalgia, unspecified site (principal); F41.9 Anxiety disorder, unspecified
CPT/HCPCS: 99282